=== PATIENT | male | born 1975 | race Caucasian/White ===

== ENCOUNTER → 2016-10-04 | Outpatient (REF) | LOC: ZLAB.WCH 11:11 | DX: Z02.89 Encounter for other administrative examinations (principal) ==

== ENCOUNTER → 2019-06-15 | Outpatient (CLI) | payer OTHER | LOC: COL.VAS 08:12 | DX: I82.461 Acute embolism and thrombosis of right calf muscular vein (principal); R06.02 Shortness of breath ==